=== PATIENT | female | born 1995 | race Two or more races ===

== ENCOUNTER 2022-02-01 20:16 | Emergency (ER) | payer OTHER ==
[~2022-02-01] VITALS: Ht 154.9 cm; Wt 123.2 kg
[2022-02-01] MEDS ORDERED: METF-1211 PO (20:56)
[2022-02-01 21:06] LABS: GLUCOMETER DEV NAME(LOC) ERT.5; GLUCOSE,POINT OF CARE 99 MG/DL (70-110)
[2022-02-01 21:24] LABS: BASOPHILS % (AUTO) 0.6 % (0.0-2.0); HEMATOCRIT 38.3 % (36-46); HEMOGLOBIN 12.7 g/dL (12.0-16.0); LYMPHOCYTES # (AUTO) 1.9 K/uL (1.0-4.8); LYMPHOCYTES % (AUTO) 18.9 % (22.0-44.0); MEAN CORPUSCULAR HGB CONC 33.3 G/dL (31.0-37.0); MEAN CORPUSCULAR VOLUME 90 fL (80-100); MONOCYTES # (AUTO) 0.5 K/uL (0.1-1.0); MONOCYTES % (AUTO) 5.5 % (2.0-9.0); NEUTROPHILS # (AUTO) 7.3 K/uL (1.8-7.7); PLATELET COUNT (AUTO) 198 K/uL (150-450); RED BLOOD CELL COUNT(AUTO) 4.24 MIL/uL (4.00-5.20); RED CELL DISTRIBUTION WIDTH 13.7 % (11.5-14.5)
[2022-02-01 21:30] LABS: ANION GAP 7 mmol/L (8-16); CALCIUM, TOTAL 9.2 mg/dL (8.8-10.5); CARBON DIOXIDE 26 mmol/L (22-29); CHLORIDE 106 mmol/L (98-107); CREATININE 0.68 mg/dL (0.60-1.30); GLOMERULAR FILTR. RATE CALC > 60 mL/min (>60); GLUCOSE,RANDOM 105 mg/dL (70-110); POTASSIUM 3.6 mmol/L (3.5-5.1); SODIUM SERUM 139 mmol/L (136-145); UREA NITROGEN, BLOOD 10 mg/dL (7-18)
[2022-02-01 21:41] LABS: ALBUMIN 3.6 g/dL (3.4-5.0); BILIRUBIN,TOTAL 3.3 mg/dL (0.1-1.0); HCG,QUANTITATIVE < 1 mIU/mL (0-6); LIPASE 109 U/L (73-393); TOTAL PROTEIN, SERUM 7.9 g/dL (6.4-8.2)
[2022-02-01 21:59] LABS: ALANINE AMINOTRANSFERASE 695 U/L (12-78); ALKALINE PHOSPHATASE 278 U/L (46-116); ASPARTATE AMINOTRANSFERASE 393 U/L (15-37)
[2022-02-01 22:17] LABS: APPEARANCE,URINE HAZY (CLEAR); GLUCOSE, URINE (UA) NEGATIVE (NEGATIVE); KETONES,URINE NEGATIVE (NEGATIVE); LEUKOCYTE ESTERASE ,URINE MODERATE (NEGATIVE); NITRATE,URINE POSITIVE (NEGATIVE); OCCULT BLOOD,URINE NEGATIVE (NEGATIVE); PH,URINE 5.5 (5.0-8.0); PROTEIN,URINE TRACE mg/dL (NEGATIVE); SPECIFIC GRAVITIY, URINE 1.028 (1.003-1.030)
[2022-02-01 22:19] LABS: BILIRUBIN,URINE MODERATE (NEGATIVE)
[2022-02-01 22:38] LABS: BACTERIA,URINE Many /HPF (None Seen); RBC,URINE 0-2 /HPF (0-2)
[2022-02-01 22:40] LABS: AMORPHOUS SEDIMENT,UR Moderate /LPF (None Seen); COARSE GRANULAR CASTS,URINE 0-2 /LPF (None Seen); SQUAMOUS EPITHELIAL CELL,UR Moderate /LPF (None Seen)
[2022-02-01] MEDS ORDERED: IOHEXOL 350 MG/ML 100 ML VIAL ONE (22:52)
[2022-02-01] MEDS ORDERED: SODIUM CHLORIDE 0.9% 100 ML ONE (22:52)
[2022-02-01] MEDS ORDERED: SODIUM CHLORIDE 0.9% 1,000 ML ONE (23:10)
[2022-02-01] MEDS ORDERED: CefTRIAXone 1 GM/DEXTROSE 50 ML IV ONE (23:15)
[2022-02-02] MEDS ORDERED: CEPH-558 PO (03:10)
[2022-02-02 03:32] VITALS: BP 125/67
[2022-02-03 06:06] LABS: HEPATITIS C AB (EIA) <0.1 s/co ratio (0.0-0.9)
== END 2022-02-02 03:34 | disposition home or self-care (01) ==
LOC: EMS 20:17
DX: K76.0 Fatty (change of) liver, not elsewhere classified (principal); K80.20 Calculus of gallbladder without cholecystitis without obstruction; N39.0 Urinary tract infection, site not specified; E11.9 Type 2 diabetes mellitus without complications
CPT/HCPCS: 99285; 74177; 96365; 76705; 80053; 81001; 82962; 83690; 84702; 85025; 85610; 85730; 36415; 87086; 80074; G0481; J0696; Q9967; J7030; J7050; 87186